=== PATIENT | female | born 1995 | race Caucasian/White ===

== ENCOUNTER 2025-04-27 10:51 | Outpatient (CLI) | payer SELFPAY | END 2025-04-27 10:52 | disposition home or self-care (01) | PROVIDERS: Visit Provider Advanced Practice Midwife | DX: Z34.93 Encounter for supervision of normal pregnancy, unspecified, third trimester (principal) | CPT/HCPCS: 86780; 86850; 86900; 86901 ==

== ENCOUNTER 2025-04-28 14:07 | Outpatient (CLI) | payer MEDICAID, SELFPAY | END 2025-04-28 14:08 | disposition home or self-care (01) | LOC: NFLDREF 14:07 | PROVIDERS: Visit Provider Advanced Practice Midwife | DX: Z67.91 Unspecified blood type, Rh negative; O26.893 Other specified pregnancy related conditions, third trimester | CPT/HCPCS: J2791 ==